=== PATIENT | male | born 1980 | race Two or more races ===

== ENCOUNTER 2019-02-07 07:52 | Emergency (ER) | payer OTHER ==
[~2019-02-07] VITALS: Ht 170.2 cm; Wt 124.7 kg
[2019-02-07] MEDS ORDERED: SYNTHROID88 MCG PO (08:19)
[2019-02-07] MEDS ORDERED: VASOTEC20 M1 PO (08:19)
[2019-02-07] MEDS ORDERED: GLUCOTROL10 MG PO (08:20)
[2019-02-07] MEDS ORDERED: METFORMIN HCL500 M2 PO (08:20)
== END 2019-02-07 12:38 | disposition home or self-care (01) ==
LOC: ER 07:52
DX: K80.20 Calculus of gallbladder without cholecystitis without obstruction (principal)

== ENCOUNTER → 2020-05-21 | Emergency (ER) | payer OTHER ==
[~2020-05-21] VITALS: Ht 172.7 cm; Wt 117.0 kg
[~2020-05-21] MED LIST: GLUCOTROL10 MG PO; METFORMIN HCL500 M2 PO; SYNTHROID88 MCG PO; VASOTEC20 M1 PO
== END | disposition home or self-care (01) ==
LOC: ER 08:36
DX: N49.2 Inflammatory disorders of scrotum (principal)